=== PATIENT | female | born 1980 | race Caucasian/White ===

== ENCOUNTER 2017-07-03 10:11 | Outpatient (CLI) | payer MEDICAID | END 2017-07-03 23:59 | disposition home or self-care (01) | LOC: LAB 10:11 | PROVIDERS: ATTEND Family Medicine | DX: G93.3 Postviral and related fatigue syndromes (principal) ==

== ENCOUNTER 2020-03-18 16:38 | Emergency (ER) | payer MEDICAID ==
[~2020-03-18] VITALS: Ht 170.2 cm; Wt 63.2 kg
[2020-03-18 18:38] VITALS: BP 120/78
== END 2020-03-18 17:38 | disposition home or self-care (01) ==
LOC: ER 16:39
DX: Z03.818 Encounter for observation for suspected exposure to other biological agents ruled out (principal); R50.9 Fever, unspecified; R19.7 Diarrhea, unspecified; F17.200 Nicotine dependence, unspecified, uncomplicated; Z72.89 Other problems related to lifestyle; Z88.1 Allergy status to other antibiotic agents; Z79.899 Other long term (current) drug therapy
CPT/HCPCS: 36415; 87635; 99283